=== PATIENT | female | born 1995 | race Two or more races ===

== ENCOUNTER 2016-12-03 21:34 | Emergency (ER) | payer SELFPAY ==
[~2016-12-03] VITALS: Ht 162.6 cm; Wt 63.0 kg
[2016-12-03 21:55] VITALS: BP 96/66
[2016-12-03] MEDS ORDERED: Bactrim DS (160mg/800mg) tab ONE (22:32)
[2016-12-03 22:45] VITALS: BP 96/66
[2016-12-03] MEDS ORDERED: IBUPROFEN600 MG ORAL (22:45)
[2016-12-03] MEDS: Bactrim DS (160mg/800mg) tab ORAL ONE (22:45)
[2016-12-03] MEDS ORDERED: BACTRIM DS TAB1 EAC1 ORAL (22:45)
--- NOTE | 2016-12-03 22:45 | Emergency Room Report ---
History of Present Illness General Chief Complaint: Skin Rash/Abscess Source: Patient Present Illness HPI A 21-year-old female present with a rash in her right elbow area. Onset for the last 2 days. No fever or chills. Redness increasing. Notice a little pimple yesterday. No other complaint. Does have some drainage. Pain is 7/10. Allergies: Coded Allergies: No Known Allergies (Unverified , 12/03/16) Patient History Past Medical History: see triage record, old chart reviewed Past Surgical History: none Pertinent Family History: none Social History: Denies: smoking Last Menstrual Period: 2 week ago Now: No Immunizations: other Reviewed Nursing Documentation: PMH: Agreed, PSxH: Agreed Nursing Documentation-PMH Past Medical History: No Stated History Review of Systems Eye: Denies: blurred vision, eye pain ENT: Denies: ear pain, nose congestion, throat swelling Respiratory: Denies: cough, shortness of breath Cardiovascular: Denies: chest pain, palpitations Gastrointestinal: Denies: abdominal pain, diarrhea, nausea, vomiting Musculoskeletal: Denies: back pain, joint pain Skin: Reports: rash Neurological: Denies: headache, numbness Endocrine: Denies: increased thirst, increased urine Hematologic/Lymphatic: Denies: easy bruising All Other Systems: negative except mentioned in HPI Physical Exam Vital Signs Date Time Temp Pulse Resp B/P Pulse Ox O2 Delivery O2 Flow Rate FiO2 12/03/16 21:46 98.1 70 16 96/66 98 Room Air vitals normal Sp02 EP Interpretation: reviewed, normal General Appearance: well appearing, no apparent distress, alert Head: normocephalic, atraumatic Eyes: bilateral eye EOMI, bilateral eye PERRL ENT: hearing grossly normal, normal pharynx Neck: full range of motion, supple, no meningismus Respiratory: chest non-tender, lungs clear, normal breath sounds Cardiovascular #1: regular rate, rhythm, no murmur Gastrointestinal: normal bowel sounds, non tender, no mass, no organomegaly, no bruit, non-distended Musculoskeletal: back normal, gait/station normal, normal range of motion, other - rt prox forearm: indurated area of 2cm with central necrosis. surrounding cellulitis of 5cm. FROM of elbow and wrist. Psychiatric: mood/affect normal Skin: warm/dry Procedures Incision and Drainage Incision and Drainage : Consent: Verbal Site: Right elbow Blade Size: 11 I & D Procedure: betadine prep, sterile drapes applied, sterile dressing applied Wound Location: upper extremity Anesthesia: 1% Lidocaine Volume Anesthetic (ccs): 2 Patient Tolerated: Well Complications: None Progress area clean with chlorhexidine and in Betadine. Local anesthetic with 1% lidocaine without epinephrine. I made a 1 cm incision. There was small amount of pus expressed. Loculated area broken up. Wound was irrigated. She tolerated procedure without a problem. Medical Decision Making Diagnostic Impression: Primary Impression: Abscess ER Course She presents with an abscess with surrounding cellulitis. No evidence of necrotizing fasciitis. No evidence of deep infection. No foreign body. This most likely MRSA. Last Vital Signs Date Time Temp Pulse Resp B/P Pulse Ox O2 Delivery O2 Flow Rate FiO2 12/03/16 21:55 98.1 65 16 96/66 98 Room Air Status: improved Disposition: HOME, SELF-CARE Condition: Stable Scripts Ibuprofen* (MOTRIN*) 600 Mg Tablet 600 MG ORAL THREE TIMES A DAY, #30 TAB 0 Refills Prov: MILTON ARGUELLO M.D. 12/03/16 Trimethoprim/Sulfamethoxazole 160/800* (BACTRIM DS TABLET*) 1 Each Tablet 1 TAB ORAL Q12H, #14 TAB 0 Refills Prov: MILTON ARGUELLO M.D. 12/03/16 Patient Instructions: Abscess Additional Instructions: Followup with your DrFer in 2-3 days for recheck. Return if worse. MILTON ARGUELLO M.D. Dec 03, 2016 22:45
== END 2016-12-03 22:45 | disposition home or self-care (01) ==
LOC: EMR 22:02
DX: L02.413 Cutaneous abscess of right upper limb (principal)
CPT/HCPCS: 10060

== ENCOUNTER 2017-01-11 19:48 | Emergency (ER) | payer SELFPAY ==
[~2017-01-11] VITALS: Ht 162.6 cm; Wt 63.5 kg
[~2017-01-11 19:48] MED LIST: BACTRIM DS TAB1 EAC1 ORAL; IBUPROFEN600 MG ORAL
[2017-01-11] MEDS ORDERED: NKM (20:13)
[2017-01-11] MEDS ORDERED: Tetanus/Diptheria/Pertussis Vaccine 0.5ml Syr IM ONE (20:30)
[2017-01-11] MEDS ORDERED: Bacitracin Oint UD TOPIC ONE (20:30)
[2017-01-11] MEDS ORDERED: IBUPROFEN600 MG ORAL (20:44)
[2017-01-11] MEDS ORDERED: CEPHALEXIN500 MG ORAL (20:44)
[2017-01-11] MEDS ORDERED: BACITRACIN15 GM TOPIC (20:44)
[2017-01-11 20:56] VITALS: BP 117/58
--- NOTE | 2017-01-11 22:06 | Emergency Room Report ---
History of Present Illness General Chief Complaint: Laceration Source: Patient Present Illness HPI The patient is a 21-year-old female presenting for laceration of the left foot. She states that this morning he vase fell to the floor and a shard of glass hit the left foot. She experienced bleeding and pain. Pain is now a 5/10 dull ache and does not radiate. Worse with touch. She cleaned the area with water at the time. Last tetanus shot is unsure. She denies any other injury or symptoms Allergies: Coded Allergies: No Known Allergies (Unverified , 12/03/16) Patient History Past Medical History: see triage record Pertinent Family History: none Last Menstrual Period: Jan Reviewed Nursing Documentation: PMH: Agreed, PSxH: Agreed Nursing Documentation-PMH Past Medical History: No Stated History Review of Systems All Other Systems: negative except mentioned in HPI Physical Exam Vital Signs Date Time Temp Pulse Resp B/P (MAP) Pulse Ox O2 Delivery O2 Flow Rate FiO2 01/11/17 20:08 98.1 70 18 117/58 99 Room Air Sp02 EP Interpretation: reviewed, normal Head: normocephalic, atraumatic Eyes: bilateral eye normal inspection, bilateral eye PERRL ENT: hearing grossly normal, normal pharynx, no angioedema, normal voice Musculoskeletal: back normal, gait/station normal, normal range of motion, tender - TTP over the L dorsum of foot over laceration Neurologic: alert, oriented x3, responsive, motor strength/tone normal, sensory intact, speech normal Psychiatric: judgement/insight normal, memory normal, mood/affect normal, no suicidal/homicidal ideation Skin: no rash, normal turgor, laceration - 2cm skin avulsion of the L dorsum of foot centrally Lymphatic: no adenopathy Medical Decision Making PA Attestation Dr. Dos Santos is my supervising physician. Patient management was discussed with my supervising physician Diagnostic Impression: Primary Impression: Avulsion of skin of foot Qualified Codes: S91.302A - Unspecified open wound, left foot, initial encounter ER Course The patient is a 21-year-old female presenting for laceration of the left foot Ddx considered include but not limited to fracture, tendon/ligament injury, avulsion, nerve damage Physical exam of the left foot reveals a 2 cm in diameter avulsion of the left dorsal aspect. No palpable foreign body. Wound appears shallow. Does not extend past dermis. The area is cleaned with normal saline and Betadine. Bacitracin was applied with dressing. no x-rays needed at this time The patient to be discharged home with a prescription for antibiotics and pain medication Last Vital Signs Date Time Temp Pulse Resp B/P (MAP) Pulse Ox O2 Delivery O2 Flow Rate FiO2 01/11/17 20:56 98.1 18 117/58 99 Room Air 01/11/17 20:56 80 Status: improved Disposition: HOME, SELF-CARE Condition: Improved Scripts Bacitracin (Bacitracin) 28.4 Gm Oint...g. 1 APPLIC TOPIC THREE TIMES A DAY, #28 GM Prov: TERMAYEANKAREN P.A. 01/11/17 Ibuprofen* (MOTRIN*) 600 Mg Tablet 600 MG ORAL Q8H Y for For Pain, #30 TAB 0 Refills Prov: TERZIANKAREN P.A. 01/11/17 Cephalexin* (KEFLEX*) 500 Mg Capsule 500 MG ORAL EVERY 12 HOURS, #14 CAP 0 Refills Prov: TERZIANKAREN P.A. 01/11/17 Referrals: NOT CHOSEN IPA/MD,REFERRING (PCP) Patient Instructions: Nonsutured Laceration Care Additional Instructions: I discussed my findings with the patient. All questions and concerns have been answered. Treatment and medication compliance have been addressed. I advised the patient that they need to follow up with PMD in 3-5 days. Return to ED if symptoms worsen, new symptoms arise, or if needed for any reason. Patient verbalized understanding of discharge instructions. KAREN HARRIS Jan 11, 2017 22:06
== END 2017-01-11 22:00 | disposition home or self-care (01) ==
LOC: EMR 20:10
DX: S91.312A Laceration without foreign body, left foot, initial encounter (principal); W25.XXXA Contact with sharp glass, initial encounter; Y92.9 Unspecified place or not applicable; Z23 Encounter for immunization
CPT/HCPCS: 90471; 90715; 99284